=== PATIENT | male | born 2005 ===

== ENCOUNTER 2024-04-23 19:32 | Emergency (ER) | payer OTHER ==
[~2024-04-23] VITALS: Ht 182.9 cm; Wt 122.9 kg
[2024-04-23 20:17] VITALS: TEMP 98.4
[2024-04-23 20:40] LABS: BASOPHILS % (AUTO) 1.1 % (0.0-2.0); EOSINOPHILS % (AUTO) 2.5 % (1.0-6.0); HEMATOCRIT 43.4 % (41-53); HEMOGLOBIN 15.1 g/dL (13.5-17.5); LYMPHOCYTES # (AUTO) 2.6 K/uL (1.0-4.8); MEAN CORPUSCULAR HEMOGLOBIN 28.3 pg (26.0-34.0); MEAN CORPUSCULAR HGB CONC 34.8 G/dL (31.0-37.0); MEAN CORPUSCULAR VOLUME 81 fL (80-100); MONOCYTES # (AUTO) 0.6 K/uL (0.1-1.0); NEUTROPHILS % (AUTO) 63.4 % (40.0-70.0); PLATELET COUNT (AUTO) 249 K/uL (150-450); RED BLOOD CELL COUNT(AUTO) 5.34 MIL/uL (4.50-5.90); RED CELL DISTRIBUTION WIDTH 14.2 % (11.5-14.5); WHITE BLOOD COUNT (AUTO) 9.5 K/uL (4.5-11.0)
[2024-04-23] MEDS ORDERED: BENZ1TAB84 PO (20:46)
[2024-04-23] MEDS ORDERED: LORA-1000 PO (20:46)
[2024-04-23] MEDS ORDERED: RISP3TAB35 PO (20:46)
[2024-04-23] MEDS ORDERED: OLAN10TA74 PO (20:46)
[2024-04-23 20:50] LABS: ANION GAP 13 mmol/L (8-16); CALCIUM, TOTAL 9.1 mg/dL (8.8-10.5); CARBON DIOXIDE 24 mmol/L (22-29); CHLORIDE 101 mmol/L (98-107); CREATININE 0.78 mg/dL (0.60-1.30); GLOMERULAR FILTR. RATE CALC > 60 mL/min (>60); GLUCOSE,RANDOM 310 mg/dL (70-110); POTASSIUM 3.4 mmol/L (3.5-5.1); SODIUM SERUM 138 mmol/L (136-145); UREA NITROGEN, BLOOD 9 mg/dL (7-18)
[2024-04-23 20:51] LABS: ALCOHOL, BLOOD (SERUM) < 3 mg/dL (0-10)
[2024-04-23] MEDS ORDERED: OXCA300T70 PO (20:52)
[2024-04-23] MEDS ORDERED: ESCI-8 PO (20:52)
[2024-04-23 21:07] LABS: ALBUMIN 3.2 g/dL (3.4-5.0); ALKALINE PHOSPHATASE 146 U/L (46-116); ASPARTATE AMINOTRANSFERASE 95 U/L (15-37); BILIRUBIN,TOTAL 0.3 mg/dL (0.1-1.0); TOTAL PROTEIN, SERUM 7.6 g/dL (6.4-8.2)
[2024-04-23] MEDS: LORazepam 2 MG TABLET PO ONE (21:11)
[2024-04-23] MEDS: DiphenhydrAMINE HCL 25 MG CAPSULE PO ONE (21:12)
[2024-04-23 21:40] LABS: ALANINE AMINOTRANSFERASE 199 U/L (12-78)
[2024-04-24 12:59] VITALS: BP 124/87; PULSE 110; RESP 16
== END 2024-04-24 13:06 | disposition home or self-care (01) ==
LOC: EMS 19:32
DX: F84.0 Autistic disorder (principal); F81.9 Developmental disorder of scholastic skills, unspecified; F41.9 Anxiety disorder, unspecified
CPT/HCPCS: 99285; 80053; 85025; 36415; G0480